=== PATIENT | male | born 1980 | race Caucasian/White ===

== ENCOUNTER 2023-07-03 20:42 | Outpatient (CLI) | payer OTHER, SELFPAY ==
--- NOTE | 2023-07-24 14:38 | W.PM.SLEEP ---
Sleep Study Details Details Interpreting Provider: Sheeba Date of Sleep Study: 07/03/23 Sleep Study Details: STUDY TYPE:? Hospital-based attended without CPAP ? BMI:? 32.9 ORDERING PROVIDER:? Sixto INDICATION:? Concerns about sleep apnea ? SLEEP SUMMARY:? 327.5 minutes total sleep time RESPIRATORY SUMMARY:? Mean oxygen awake 90 for sleep 94 minimum 86 0.6 minutes oxygen between 80 and 88% AHI 29.5, supine AHI 48.6, supine REM AHI 19.5. Nonsupine AHI 8.2 PERIODIC LIMB MOVEMENTS OF SLEEP:? Index 32.4, index with arousal 0.2 CARDIAC:? Awake 76, asleep 70. No arrhythmias noted IMPRESSION:? Moderate to severe obstructive sleep apnea with supine position dependency RECOMMENDATION: Treatment options include CPAP AutoSet 4-17, dental appliance and/or airway expansion surgery.
== END 2023-07-03 20:43 | disposition home or self-care (01) ==
PROVIDERS: Visit Provider Family Medicine
DX: G47.33 Obstructive sleep apnea (adult) (pediatric) (principal)
CPT/HCPCS: 95810